=== PATIENT | female | born 1960 | race Caucasian/White ===

== ENCOUNTER 2021-08-22 16:41 | Inpatient (IN) ==
[2021-08-22] MEDS ORDERED: Isovue-370 500 ML BOTTLE IVP ONE (20:46)
[2021-08-22 21:09] LABS: Basophils # 0.1 K/mcL (0.0-0.2); Basophils % 0.7 %; Eosinophils # 0.5 K/mcL (0.0-0.6); Eosinophils % 4.7 %; Hematocrit 41.7 % (35.3-44.9); Immature Granulocytes % 0.5 % (0-4); Lymphocytes # 3.5 K/mcL (0.6-4.6); Lymphocytes % 36.3 %; Mean Corpuscular HGB Conc 31.2 g/dL (31.6-35.5); Mean Corpuscular Hemoglobin 26.6 pg (28.0-33.3); Mean Corpuscular Volume 85.5 fL (83.0-100.0); Mean Platelet Volume 9.2 fL (9.4-12.4); Monocytes # 0.7 K/mcL (0.0-1.3); Monocytes % 7.5 %; Neutrophils # 4.9 K/mcL (1.6-8.9); Platelet Count 467 K/mcL (140-400); Red Blood Count 4.88 M/mcL (3.82-4.97); Red Cell Distribution Width 14.5 % (11.5-14.5); Segmented Neutrophils % 50.3 %; White Blood Count 9.6 K/mcL (4.3-11.1)
[2021-08-22 21:28] LABS: Alanine Aminotransferase 7 Units/L (7-52); Albumin 3.5 g/dL (3.5-5.7); Albumin/Globulin Ratio 0.7 (1.1-2.2); Alkaline Phosphatase 111 Units/L (34-104); Aspartate Amino Transferase 7 Units/L (13-39); BUN/Creatinine Ratio 14 (6-26); Bilirubin,Indirect 0.3 mg/dL (0.0-1.0); Bilirubin,Total 0.3 mg/dL (0.3-1.0); Blood Urea Nitrogen 10 mg/dL (8-23); Calcium 9.2 mg/dL (8.6-10.3); Carbon Dioxide 27 mEq/L (23-29); Chloride 98 mEq/L (98-107); Globulin 4.7 g/dL (2.4-3.5); Glucose 284 mg/dL (70-105); Osmolality,Calculated 291 (280-300); Potassium 3.4 mEq/L (3.5-5.1); Sodium 136 mEq/L (136-145); Total Protein 8.2 g/dL (6.4-8.9); eGFR For African Americans > 60 (> 60); eGFR For Non-African Americans > 60 (> 60)
[2021-08-22] MEDS ORDERED: Morphine Sulfate 2 MG/ML SYRINGE IVP ONE (21:38)
[2021-08-22] MEDS ORDERED: Ketorolac 30 MG/ML VIAL IVP ONE (21:38)
[2021-08-23] MEDS ORDERED: Morphine Sulfate 2 MG/ML SYRINGE IVP ONE (00:21)
[2021-08-23] MEDS ORDERED: Vancomycin 2,000 MG/520 ML IV.SOLN IVPB ONE (00:21)
[2021-08-23] MEDS ORDERED: Cefepime HCl 1,000 MG in 0.9 % Sodium Chloride 10 ML IVP ONE (00:23)
[2021-08-23] MEDS ORDERED: Acetaminophen 325 MG TABLET PO PRN (00:57)
[2021-08-23] MEDS ORDERED: Naloxone 0.4 MG/ML INJ IVP PRN (00:57)
[2021-08-23] MEDS ORDERED: Melatonin 3 MG TABLET PO PRN (00:57)
[2021-08-23] MEDS ORDERED: *HR* Dextrose 50 % in Water (Syg) 50 ML SYRINGE IVP PRN (01:01)
[2021-08-23] MEDS ORDERED: Dextrose 4 GM Chewable Tablets PO PRN ×2 (01:01)
[2021-08-23] MEDS ORDERED: D5% in Water 1,000 ML IVC PRN (01:01)
[2021-08-23] MEDS ORDERED: Perflutren Lipid Microsphere 1.3 ML in 0.9 % Sodium Chloride 8.7 ML IVP PRN (03:31)
[2021-08-23 04:04] LABS: Hematocrit 37.2 % (35.3-44.9); Hemoglobin 11.5 g/dL (11.5-15.4); Mean Corpuscular HGB Conc 30.9 g/dL (31.6-35.5); Mean Corpuscular Hemoglobin 26.2 pg (28.0-33.3); Mean Corpuscular Volume 84.7 fL (83.0-100.0); Platelet Count 403 K/mcL (140-400); Red Blood Count 4.39 M/mcL (3.82-4.97); Red Cell Distribution Width 14.3 % (11.5-14.5); White Blood Count 11.3 K/mcL (4.3-11.1)
[2021-08-23 04:06] LABS: Chol/HDL Ratio 3.8 (0-4.9); Magnesium 1.9 mg/dL (1.6-2.6); Phosphorous 3.9 mg/dL (2.7-4.5)
[2021-08-23 04:07] LABS: Activated Partial Thrombo Time 35.6 Seconds (26.0-36.0)
[2021-08-23 04:22] LABS: Alanine Aminotransferase 6 Units/L (7-52); Albumin 3.1 g/dL (3.5-5.7); Albumin/Globulin Ratio 0.8 (1.1-2.2); Alkaline Phosphatase 94 Units/L (34-104); Aspartate Amino Transferase 8 Units/L (13-39); BUN/Creatinine Ratio 15 (6-26); Bilirubin,Total 0.3 mg/dL (0.3-1.0); Blood Urea Nitrogen 9 mg/dL (8-23); Calcium 8.6 mg/dL (8.6-10.3); Carbon Dioxide 28 mEq/L (23-29); Chloride 101 mEq/L (98-107); Globulin 3.9 g/dL (2.4-3.5); Glucose 192 mg/dL (70-105); Osmolality,Calculated 288 (280-300); Potassium 3.4 mEq/L (3.5-5.1); Sodium 137 mEq/L (136-145); eGFR For African Americans > 60 (> 60); eGFR For Non-African Americans > 60 (> 60)
[2021-08-23] MEDS ORDERED: Potassium Chloride Elixir 20 MEQ/15 ML UDC PO ONE ×2 (04:25→07:30)
[2021-08-23 04:38] LABS: INR 1.2; Prothrombin Time 13.7 Seconds (9.4-12.1)
[2021-08-23 06:04] LABS: Estimated Average Glucose 237 mg/dl; Hemoglobin A1C 9.9 %
[2021-08-23] MEDS ORDERED: Insulin LISPRO 300 UNITS/3 ML VIAL SUBQ SCH (07:30)
[2021-08-23] MEDS: Insulin LISPRO 300 UNITS/3 ML VIAL SUBQ SCH ×3 (08:25→16:49)
[2021-08-23] MEDS: *HR* OxyCODONE/APAP 5/325 TABLET PO PRN ×2 (10:50→21:46)
[2021-08-23] MEDS ORDERED: Cefepime HCl 1,000 MG in 0.9 % Sodium Chloride 10 ML IVP SCH (12:00)
[2021-08-23] MEDS ORDERED: Vancomycin 1,500 MG/265 ML IV.SOLN IVPB SCH (13:00)
[2021-08-23] MEDS: Gabapentin 400 MG CAPSULE PO SCH ×2 (14:38→21:42)
[2021-08-23] MEDS: Vancomycin 1,500 MG/265 ML IV.SOLN IVPB SCH (14:48)
[2021-08-23] MEDS: Furosemide 20 MG TABLET PO SCH (16:49)
[2021-08-23] MEDS: Cefepime HCl 2,000 MG in 0.9 % Sodium Chloride 10 ML IVP SCH ×2 (16:49→23:54)
[2021-08-23 19:53] LABS: CTX-M ESBL Gene Not Detected (Not Detect); IMP Carbapenem-Resist Gene Not Detected (Not Detect); NDM Carbapenem-Resist Gene Not Detected (Not Detect); OXA-48-like Carbap-Resist Gene Not Detected (Not Detect); VIM Carbapenem-Resist Gene Not Detected (Not Detect); blaKPC Carbapenem-Resist Gene Not Detected (Not Detect); mecA/C Methicillin-Resist Gene Not Detected (Not Detect)
[2021-08-23 19:54] LABS: A.calcoaceticus-baumannii cplx Not Detected (Not Detect); Bacteroides fragilis by PCR Not Detected (Not Detect); Candida albicans by PCR Not Detected (Not Detect); Candida auris by PCR Not Detected (Not Detect); Candida glabrata by PCR Not Detected (Not Detect); Candida krusei by PCR Not Detected (Not Detect); Candida parapsilosis by PCR Not Detected (Not Detect); Candida tropicalis by PCR Not Detected (Not Detect); Crypto. neoformans/gattii PCR Not Detected (Not Detect); Enterobacter cloacae Cmplx PCR Not Detected (Not Detect); Enterobacterales by PCR Not Detected (Not Detect); Enterococcus faecalis by PCR Not Detected (Not Detect); Enterococcus faecium by PCR Not Detected (Not Detect); Escherichia coli by PCR Not Detected (Not Detect); Klebs. pneumoniae group by PCR Not Detected (Not Detect); Klebsiella aerogenes by PCR Not Detected (Not Detect); Klebsiella oxytoca by PCR Not Detected (Not Detect); Proteus by PCR Not Detected (Not Detect); Pseudomonas aeruginosa by PCR Not Detected (Not Detect); Salmonella species by PCR Not Detected (Not Detect); Serratia marcescens by PCR Not Detected (Not Detect); Staph epidermidis by PCR Not Detected (Not Detect); Staph lugdunensis by PCR Not Detected (Not Detect); Staphylococcus aureus by PCR DETECTED (Not Detect); Stenotrophomonas maltophilia Not Detected (Not Detect); Streptococcus agalactiae(B)PCR Not Detected (Not Detect); Streptococcus by PCR Not Detected (Not Detect); Streptococcus pneumoniae PCR Not Detected (Not Detect); Streptococcus pyogenes (A) PCR Not Detected (Not Detect); mcr-1 Colistin-Resist Gene Not Detected (Not Detect); mecA/C & MREJ (MRSA) Gene Not Detected (Not Detect); vanA/B Vancomycin-Resist Genes Not Detected (Not Detect)
[2021-08-23] MEDS ORDERED: Insulin DETEMIR 100 UNIT/ML X5UNITS SUBQ SCH ×2 (21:00)
[2021-08-24] MEDS: *HR* OxyCODONE/APAP 5/325 TABLET PO PRN ×2 (04:22→15:26)
[2021-08-24 04:39] LABS: BUN/Creatinine Ratio 17 (6-26); Blood Urea Nitrogen 11 mg/dL (8-23); Calcium 8.6 mg/dL (8.6-10.3); Carbon Dioxide 26 mEq/L (23-29); Chloride 100 mEq/L (98-107); Glucose 267 mg/dL (70-105); Osmolality,Calculated 289 (280-300); Potassium 4.4 mEq/L (3.5-5.1); Sodium 135 mEq/L (136-145); eGFR For African Americans > 60 (> 60); eGFR For Non-African Americans > 60 (> 60)
[2021-08-24] MEDS: *HR* Enoxaparin 40 MG/0.4 ML SYRINGE SQ SCH (05:30)
[2021-08-24] MEDS: Insulin LISPRO 300 UNITS/3 ML VIAL SUBQ SCH ×3 (08:29→18:13)
[2021-08-24] MEDS: Cefepime HCl 2,000 MG in 0.9 % Sodium Chloride 10 ML IVP SCH (08:29)
[2021-08-24] MEDS: Furosemide 20 MG TABLET PO SCH ×2 (08:30→18:18)
[2021-08-24] MEDS: Gabapentin 400 MG CAPSULE PO SCH ×3 (08:30→20:27)
[2021-08-24] MEDS ORDERED: Perflutren Lipid Microsphere 1.3 ML in 0.9 % Sodium Chloride 8.7 ML IVP PRN (12:39)
[2021-08-24] MEDS: Insulin DETEMIR 100 UNIT/ML X5UNITS SUBQ SCH ×2 (14:49→20:27)
[2021-08-24] MEDS: Vancomycin 1,500 MG/265 ML IV.SOLN IVPB SCH (14:50)
[2021-08-24] MEDS: CeFAZolin 2,000 MG/120 ML BAG IVPB SCH (18:13)
[2021-08-25] MEDS: CeFAZolin 2,000 MG/120 ML BAG IVPB SCH ×4 (01:09→23:36)
[2021-08-25 01:14] LABS: Hematocrit 34.2 % (35.3-44.9); Hemoglobin 10.5 g/dL (11.5-15.4); Mean Corpuscular HGB Conc 30.7 g/dL (31.6-35.5); Mean Corpuscular Hemoglobin 26.1 pg (28.0-33.3); Mean Corpuscular Volume 84.9 fL (83.0-100.0); Mean Platelet Volume 9.3 fL (9.4-12.4); Platelet Count 364 K/mcL (140-400); Red Blood Count 4.03 M/mcL (3.82-4.97); White Blood Count 8.4 K/mcL (4.3-11.1)
[2021-08-25 01:31] LABS: BUN/Creatinine Ratio 21 (6-26); Blood Urea Nitrogen 14 mg/dL (8-23); Calcium 8.5 mg/dL (8.6-10.3); Carbon Dioxide 27 mEq/L (23-29); Chloride 101 mEq/L (98-107); Glucose 220 mg/dL (70-105); Magnesium 1.8 mg/dL (1.6-2.6); Osmolality,Calculated 285 (280-300); Phosphorous 3.3 mg/dL (2.7-4.5); Potassium 4.6 mEq/L (3.5-5.1); Sodium 134 mEq/L (136-145); eGFR For African Americans > 60 (> 60); eGFR For Non-African Americans > 60 (> 60)
[2021-08-25] MEDS: *HR* Enoxaparin 40 MG/0.4 ML SYRINGE SQ SCH (05:10)
[2021-08-25] MEDS: Furosemide 20 MG TABLET PO SCH ×2 (09:56→17:04)
[2021-08-25] MEDS: Gabapentin 400 MG CAPSULE PO SCH ×3 (10:02→21:32)
[2021-08-25] MEDS: Insulin DETEMIR 100 UNIT/ML X5UNITS SUBQ SCH ×2 (10:06→21:33)
[2021-08-25] MEDS: Insulin LISPRO 300 UNITS/3 ML VIAL SUBQ SCH ×3 (10:06→17:07)
[2021-08-25] MEDS: *HR* OxyCODONE/APAP 5/325 TABLET PO PRN ×2 (13:08→21:32)
[2021-08-26] MEDS: *HR* Enoxaparin 40 MG/0.4 ML SYRINGE SQ SCH (04:54)
[2021-08-26] MEDS: Insulin LISPRO 300 UNITS/3 ML VIAL SUBQ SCH ×3 (09:15→17:09)
[2021-08-26] MEDS: Gabapentin 400 MG CAPSULE PO SCH ×3 (09:16→20:37)
[2021-08-26] MEDS: Insulin DETEMIR 100 UNIT/ML X5UNITS SUBQ SCH ×2 (09:21→20:37)
[2021-08-26] MEDS: *HR* OxyCODONE/APAP 5/325 TABLET PO PRN ×3 (09:32→23:56)
[2021-08-26] MEDS: CeFAZolin 2,000 MG/120 ML BAG IVPB SCH ×3 (10:38→23:56)
[2021-08-27 03:17] LABS: Hematocrit 34.1 % (35.3-44.9); Hemoglobin 10.5 g/dL (11.5-15.4); Mean Corpuscular HGB Conc 30.8 g/dL (31.6-35.5); Mean Corpuscular Hemoglobin 26.3 pg (28.0-33.3); Mean Corpuscular Volume 85.3 fL (83.0-100.0); Mean Platelet Volume 9.4 fL (9.4-12.4); Platelet Count 334 K/mcL (140-400); Red Cell Distribution Width 14.3 % (11.5-14.5); White Blood Count 7.8 K/mcL (4.3-11.1)
[2021-08-27 03:31] LABS: BUN/Creatinine Ratio 28 (6-26); Blood Urea Nitrogen 16 mg/dL (8-23); Calcium 8.7 mg/dL (8.6-10.3); Carbon Dioxide 25 mEq/L (23-29); Chloride 102 mEq/L (98-107); Glucose 151 mg/dL (70-105); Magnesium 1.8 mg/dL (1.6-2.6); Osmolality,Calculated 282 (280-300); Potassium 4.4 mEq/L (3.5-5.1); Sodium 134 mEq/L (136-145); eGFR For African Americans > 60 (> 60); eGFR For Non-African Americans > 60 (> 60)
[2021-08-27] MEDS: *HR* Enoxaparin 40 MG/0.4 ML SYRINGE SQ SCH (05:04)
[2021-08-27] MEDS: Insulin LISPRO 300 UNITS/3 ML VIAL SUBQ SCH ×3 (08:06→16:45)
[2021-08-27] MEDS: Insulin DETEMIR 100 UNIT/ML X5UNITS SUBQ SCH ×2 (09:01→20:25)
[2021-08-27] MEDS: Gabapentin 400 MG CAPSULE PO SCH ×3 (09:01→20:24)
[2021-08-27] MEDS: CeFAZolin 2,000 MG/120 ML BAG IVPB SCH ×4 (09:06→23:09)
[2021-08-27] MEDS: *HR* OxyCODONE/APAP 5/325 TABLET PO PRN ×3 (09:07→20:24)
[2021-08-27] MEDS: Ondansetron ODT 4 MG TAB.RAPDIS SL PRN (11:43)
[2021-08-28] MEDS: *HR* Enoxaparin 40 MG/0.4 ML SYRINGE SQ SCH (04:56)
[2021-08-28] MEDS: *HR* OxyCODONE/APAP 5/325 TABLET PO PRN ×4 (04:56→23:48)
[2021-08-28] MEDS: Gabapentin 400 MG CAPSULE PO SCH ×3 (09:02→20:48)
[2021-08-28] MEDS: CeFAZolin 2,000 MG/120 ML BAG IVPB SCH ×3 (09:02→23:08)
[2021-08-28] MEDS: Insulin DETEMIR 100 UNIT/ML X5UNITS SUBQ SCH ×2 (09:03→20:49)
[2021-08-28] MEDS: Insulin LISPRO 300 UNITS/3 ML VIAL SUBQ SCH ×3 (09:03→16:32)
[2021-08-29] MEDS: *HR* Enoxaparin 40 MG/0.4 ML SYRINGE SQ SCH (05:04)
[2021-08-29] MEDS: Insulin LISPRO 300 UNITS/3 ML VIAL SUBQ SCH ×3 (08:28→17:38)
[2021-08-29] MEDS: Insulin DETEMIR 100 UNIT/ML X5UNITS SUBQ SCH ×2 (08:28→21:44)
[2021-08-29] MEDS: Gabapentin 400 MG CAPSULE PO SCH ×3 (08:29→21:44)
[2021-08-29] MEDS: CeFAZolin 2,000 MG/120 ML BAG IVPB SCH ×3 (08:29→23:43)
[2021-08-29] MEDS: *HR* OxyCODONE/APAP 5/325 TABLET PO PRN ×2 (08:52→19:34)
[2021-08-29 09:24] LABS: Hematocrit 30.9 % (35.3-44.9); Hemoglobin 9.6 g/dL (11.5-15.4); Mean Corpuscular HGB Conc 31.1 g/dL (31.6-35.5); Mean Corpuscular Hemoglobin 26.8 pg (28.0-33.3); Mean Corpuscular Volume 86.3 fL (83.0-100.0); Mean Platelet Volume 9.5 fL (9.4-12.4); Platelet Count 306 K/mcL (140-400); Red Blood Count 3.58 M/mcL (3.82-4.97); Red Cell Distribution Width 14.6 % (11.5-14.5); White Blood Count 7.8 K/mcL (4.3-11.1)
[2021-08-29 10:09] LABS: BUN/Creatinine Ratio 30 (6-26); Blood Urea Nitrogen 18 mg/dL (8-23); Calcium 8.4 mg/dL (8.6-10.3); Carbon Dioxide 29 mEq/L (23-29); Chloride 105 mEq/L (98-107); Glucose 159 mg/dL (70-105); Magnesium 1.7 mg/dL (1.6-2.6); Osmolality,Calculated 291 (280-300); Potassium 4.1 mEq/L (3.5-5.1); Sodium 138 mEq/L (136-145); eGFR For African Americans > 60 (> 60); eGFR For Non-African Americans > 60 (> 60)
[2021-08-29] MEDS ORDERED: Lidocaine Viscous Oral Soln 15 ML SOLUTION MM PRN (11:05)
[2021-08-29] MEDS ORDERED: 0.9 % Sodium Chloride 500 ML IVC ONE (11:05)
[2021-08-29] MEDS: *HR* FentaNYL (PF) 100 MCG/2 ML VIAL IVP PRN ×2 (11:25→11:30)
[2021-08-29] MEDS: *HR* Midazolam HCl 5 MG/5 ML VIAL IVP PRN ×2 (11:25→11:30)
[2021-08-29 15:38] LABS: Hematocrit 33.2 % (35.3-44.9); Hemoglobin 10.2 g/dL (11.5-15.4); Mean Corpuscular HGB Conc 30.7 g/dL (31.6-35.5); Mean Corpuscular Hemoglobin 26.4 pg (28.0-33.3); Mean Platelet Volume 9.4 fL (9.4-12.4); Platelet Count 327 K/mcL (140-400); Red Blood Count 3.86 M/mcL (3.82-4.97); Red Cell Distribution Width 14.6 % (11.5-14.5); White Blood Count 8.6 K/mcL (4.3-11.1)
[2021-08-29 15:56] LABS: % Iron Saturation 7 % (15-50); Iron 17 mcg/dL (50-170); Transferrin 177 mg/dL (203-362)
[2021-08-29] MEDS: Ondansetron ODT 4 MG TAB.RAPDIS SL PRN (19:34)
[2021-08-30] MEDS: *HR* OxyCODONE/APAP 5/325 TABLET PO PRN ×3 (02:36→20:47)
[2021-08-30] MEDS: *HR* Enoxaparin 40 MG/0.4 ML SYRINGE SQ SCH (04:54)
[2021-08-30 07:42] LABS: Alanine Aminotransferase 6 Units/L (7-52); Albumin 2.9 g/dL (3.5-5.7); Alkaline Phosphatase 66 Units/L (34-104); Aspartate Amino Transferase 10 Units/L (13-39); BUN/Creatinine Ratio 25 (6-26); Bilirubin,Total 0.2 mg/dL (0.3-1.0); Blood Urea Nitrogen 14 mg/dL (8-23); Calcium 8.4 mg/dL (8.6-10.3); Carbon Dioxide 27 mEq/L (23-29); Chloride 106 mEq/L (98-107); Globulin 2.8 g/dL (2.4-3.5); Glucose 198 mg/dL (70-105); Osmolality,Calculated 294 (280-300); Potassium 4.5 mEq/L (3.5-5.1); Sodium 139 mEq/L (136-145); Total Protein 5.7 g/dL (6.4-8.9); eGFR For African Americans > 60 (> 60); eGFR For Non-African Americans > 60 (> 60)
[2021-08-30 07:44] LABS: Ferritin 166 ng/mL (10-120)
[2021-08-30] MEDS: Insulin LISPRO 300 UNITS/3 ML VIAL SUBQ SCH ×3 (08:25→16:32)
[2021-08-30] MEDS: CeFAZolin 2,000 MG/120 ML BAG IVPB SCH ×2 (08:25→16:32)
[2021-08-30] MEDS: Insulin DETEMIR 100 UNIT/ML X5UNITS SUBQ SCH ×2 (08:25→20:34)
[2021-08-30] MEDS: Gabapentin 400 MG CAPSULE PO SCH ×3 (08:25→20:33)
[2021-08-30] MEDS ORDERED: Chloraseptic Spray 177 ML BOTTLE MM PRN (10:52)
[2021-08-30] MEDS ORDERED: *HR* Propofol 200 MG/20 ML VIAL IVP ONE (15:19)
[2021-08-30] MEDS ORDERED: Lidocaine -MPF 2% 2 ML VIAL ONE (15:19)
[2021-08-31] MEDS: CeFAZolin 2,000 MG/120 ML BAG IVPB SCH ×3 (00:04→15:35)
[2021-08-31] MEDS: *HR* OxyCODONE/APAP 5/325 TABLET PO PRN ×2 (04:46→12:10)
[2021-08-31] MEDS: *HR* Enoxaparin 40 MG/0.4 ML SYRINGE SQ SCH (05:36)
[2021-08-31] MEDS: Gabapentin 400 MG CAPSULE PO SCH ×2 (08:55→15:34)
[2021-08-31] MEDS: Insulin DETEMIR 100 UNIT/ML X5UNITS SUBQ SCH (08:56)
[2021-08-31] MEDS: Insulin LISPRO 300 UNITS/3 ML VIAL SUBQ SCH ×3 (08:57→16:33)
[2021-08-31 12:04] VITALS: BP 133/73; PULSE 74; TEMP 98.1; O2SAT 96
== END 2021-08-31 16:38 | disposition home health service (06) | DRG 383 ==
LOC: EMEROOARM 16:41 → 3ANU 16:41 → SUATTDRO 08-23 00:44 → 3ANU 08-23 02:00 → SUATTDRO 08-23 13:37
PROVIDERS: ADMIT Internal Medicine; ATTEND Family Medicine
PROC: ENDOEBX (2021-08-30 15:20)

== ENCOUNTER 2022-02-12 10:55 | Observation (INO) ==
[2022-02-12] MEDS ORDERED: Ringers Solution, Lactated 1,000 ML IVC SCH ×2 (12:00→21:34)
[2022-02-12] MEDS ORDERED: Vancomycin 2,000 MG/520 ML IV.SOLN IVPB ONE (12:00)
[2022-02-12] MEDS ORDERED: Sugammadex Sodium 200 MG/2 ML VIAL IV ONE (13:59)
[2022-02-12] MEDS ORDERED: *HR* FentaNYL (PF) 100 MCG/2 ML VIAL ONE ×2 (13:59→16:40)
[2022-02-12] MEDS ORDERED: *HR* Propofol 200 MG/20 ML VIAL IVP ONE ×2 (13:59→16:39)
[2022-02-12] MEDS ORDERED: *HR* Succinylcholine 200 MG/10 ML VIAL IVP ONE (13:59)
[2022-02-12] MEDS ORDERED: Lidocaine -MPF 2% 2 ML VIAL ONE (13:59)
[2022-02-12] MEDS ORDERED: Ondansetron 4 MG/2 ML VIAL ONE (13:59)
[2022-02-12] MEDS ORDERED: *HR* Phenylephrine 10 MG/ML VIAL ONE (15:55)
[2022-02-12] MEDS ORDERED: *HR* Midazolam HCl 2 MG/2 ML VIAL ONE (17:07)
[2022-02-12] MEDS ORDERED: Albumin Human 5% 25.0 GM/500 ML IV.SOLN ONE (17:35)
[2022-02-12] MEDS ORDERED: Acetaminophen IV 1,000 MG/100 ML BAG IVPB ONE (19:25)
[2022-02-12] MEDS ORDERED: Ketorolac 30 MG/ML VIAL ONE (19:54)
[2022-02-12] MEDS ORDERED: *HR* HYDROmorphone (PF) 1 MG/ML SYRINGE ONE (20:16)
[2022-02-12] MEDS: *HR* HYDROmorphone PF 0.5 MG/0.5 ML SYRINGE IVP PRN ×3 (20:25→20:42)
[2022-02-12] MEDS ORDERED: Ondansetron 4 MG/2 ML VIAL IVP PRN ×2 (20:44→21:34)
[2022-02-12] MEDS ORDERED: Naloxone 0.4 MG/ML INJ IVP PRN ×2 (20:44→21:34)
[2022-02-12] MEDS ORDERED: Ketorolac 30 MG/ML VIAL IVP PRN (20:44)
[2022-02-12] MEDS ORDERED: NON-FORMULARY MEDICATION 1 EACH EACH (Insulin Glargine,Hum.Rec.Anlog [Lantus Solostar] 100 SQ SCH (21:34)
[2022-02-12] MEDS: Insulin DETEMIR 100 UNIT/ML X5UNITS SUBQ SCH (22:40)
[2022-02-12] MEDS: Gabapentin 400 MG CAPSULE PO SCH (22:41)
[2022-02-12] MEDS: Furosemide 20 MG TABLET PO SCH ×2 (22:42→23:36)
[2022-02-13] MEDS: Ketorolac 30 MG/ML VIAL IVP PRN (00:20)
[2022-02-13 01:35] LABS: Basophils % 0.4 %; Hematocrit 37.5 % (35.3-44.9); Hemoglobin 11.7 g/dL (11.5-15.4); Immature Granulocytes % 0.6 % (0-4); Lymphocytes # 0.8 K/mcL (0.6-4.6); Lymphocytes % 10.6 %; Mean Corpuscular HGB Conc 31.2 g/dL (31.6-35.5); Mean Corpuscular Hemoglobin 26.6 pg (28.0-33.3); Mean Corpuscular Volume 85.2 fL (83.0-100.0); Mean Platelet Volume 9.5 fL (9.4-12.4); Monocytes # 0.1 K/mcL (0.0-1.3); Monocytes % 0.8 %; Neutrophils # 6.9 K/mcL (1.6-8.9); Platelet Count 334 K/mcL (140-400); Red Cell Distribution Width 16.5 % (11.5-14.5); Segmented Neutrophils % 87.6 %; White Blood Count 7.9 K/mcL (4.3-11.1)
[2022-02-13 01:59] LABS: Potassium 4.7 mEq/L (3.5-5.1)
[2022-02-13] MEDS: *HR* FentaNYL (PF) 100 MCG/2 ML VIAL IVP PRN ×3 (02:21→11:12)
[2022-02-13] MEDS ORDERED: Vancomycin 2,000 MG/520 ML IV.SOLN IVPB ONE (06:00)
[2022-02-13] MEDS: Pantoprazole 40 MG VIAL IVP SCH (06:22)
[2022-02-13] MEDS ORDERED: D5% in Water 1,000 ML IVC PRN (06:46)
[2022-02-13] MEDS ORDERED: *HR* Dextrose 50 % in Water (Syg) 50 ML SYRINGE IVP PRN (06:46)
[2022-02-13] MEDS ORDERED: Dextrose Gel 15 GM/37.5 ML TUBE PO PRN ×2 (06:46)
[2022-02-13] MEDS: Furosemide 20 MG TABLET PO SCH ×2 (08:43→18:51)
[2022-02-13] MEDS: Gabapentin 400 MG CAPSULE PO SCH ×3 (08:43→20:11)
[2022-02-13] MEDS: Loratadine 10 MG TABLET PO SCH (08:43)
[2022-02-13] MEDS: hydroCHLOROthiazide 25 MG TABLET PO SCH (08:45)
[2022-02-13] MEDS: Insulin DETEMIR 100 UNIT/ML X5UNITS SUBQ SCH ×2 (08:57→20:11)
[2022-02-13] MEDS: Insulin LISPRO 300 UNITS/3 ML VIAL SUBQ SCH ×4 (08:58→20:14)
[2022-02-13] MEDS ORDERED: Pantoprazole 40 MG VIAL IVP SCH (09:00)
[2022-02-13] MEDS ORDERED: Chloraseptic Spray 177 ML BOTTLE MM PRN (19:22)
[2022-02-14] MEDS: Ketorolac 30 MG/ML VIAL IVP PRN (02:39)
[2022-02-14] MEDS: Pantoprazole 40 MG VIAL IVP SCH (06:11)
[2022-02-14 07:08] LABS: White Blood Count 8.9 K/mcL (4.3-11.1)
[2022-02-14 07:09] LABS: Basophils % 0.3 %; Eosinophils # 0.1 K/mcL (0.0-0.6); Eosinophils % 1.2 %; Hematocrit 31.5 % (35.3-44.9); Hemoglobin 9.6 g/dL (11.5-15.4); Lymphocytes # 3.1 K/mcL (0.6-4.6); Lymphocytes % 34.5 %; Mean Corpuscular HGB Conc 30.5 g/dL (31.6-35.5); Mean Corpuscular Volume 88.7 fL (83.0-100.0); Mean Platelet Volume 9.6 fL (9.4-12.4); Monocytes # 0.7 K/mcL (0.0-1.3); Monocytes % 7.9 %; Neutrophils # 4.9 K/mcL (1.6-8.9); Platelet Count 279 K/mcL (140-400); Red Blood Count 3.55 M/mcL (3.82-4.97); Red Cell Distribution Width 16.7 % (11.5-14.5); Segmented Neutrophils % 55.1 %
[2022-02-14 07:27] LABS: Magnesium 1.8 mg/dL (1.6-2.6); Potassium 4.4 mEq/L (3.5-5.1)
[2022-02-14] MEDS: Gabapentin 400 MG CAPSULE PO SCH ×3 (08:11→20:24)
[2022-02-14] MEDS: Furosemide 20 MG TABLET PO SCH ×2 (08:11→18:29)
[2022-02-14] MEDS: Loratadine 10 MG TABLET PO SCH (08:11)
[2022-02-14] MEDS: hydroCHLOROthiazide 25 MG TABLET PO SCH (08:11)
[2022-02-14] MEDS: Insulin LISPRO 300 UNITS/3 ML VIAL SUBQ SCH ×5 (08:17→20:41)
[2022-02-14] MEDS: Insulin DETEMIR 100 UNIT/ML X5UNITS SUBQ SCH ×2 (08:18→20:30)
[2022-02-14] MEDS: *HR* OxyCODONE Immed Rel 5 MG TABLET PO PRN (20:24)
[2022-02-15] MEDS: Pantoprazole 40 MG VIAL IVP SCH (06:50)
[2022-02-15] MEDS: Insulin LISPRO 300 UNITS/3 ML VIAL SUBQ SCH ×4 (08:42→20:54)
[2022-02-15] MEDS: hydroCHLOROthiazide 25 MG TABLET PO SCH (08:43)
[2022-02-15] MEDS: Furosemide 20 MG TABLET PO SCH ×2 (08:43→18:11)
[2022-02-15] MEDS: Insulin DETEMIR 100 UNIT/ML X5UNITS SUBQ SCH ×2 (08:43→20:51)
[2022-02-15] MEDS: Loratadine 10 MG TABLET PO SCH (08:43)
[2022-02-15] MEDS: Gabapentin 400 MG CAPSULE PO SCH ×3 (08:43→20:47)
[2022-02-15] MEDS: Ketorolac 30 MG/ML VIAL IVP PRN ×2 (14:03→20:46)
[2022-02-16] MEDS: *HR* OxyCODONE Immed Rel 5 MG TABLET PO PRN (05:04)
[2022-02-16] MEDS: Gabapentin 400 MG CAPSULE PO SCH ×3 (08:53→20:50)
[2022-02-16] MEDS: Furosemide 20 MG TABLET PO SCH ×2 (08:53→16:42)
[2022-02-16] MEDS: hydroCHLOROthiazide 25 MG TABLET PO SCH (08:53)
[2022-02-16] MEDS: Loratadine 10 MG TABLET PO SCH (08:53)
[2022-02-16] MEDS: Insulin DETEMIR 100 UNIT/ML X5UNITS SUBQ SCH ×2 (08:57→20:50)
[2022-02-16] MEDS: Insulin LISPRO 300 UNITS/3 ML VIAL SUBQ SCH ×4 (08:57→20:51)
[2022-02-16] MEDS: Ketorolac 30 MG/ML VIAL IVP PRN (15:13)
[2022-02-16] MEDS: Acetaminophen 325 MG TABLET PO PRN (17:27)
[2022-02-16] MEDS: amLODIPine 5 MG TABLET PO SCH (18:13)
[2022-02-17] MEDS: Acetaminophen 325 MG TABLET PO PRN (04:12)
[2022-02-17] MEDS ORDERED: DULAGLUTIDE 4.5 MG/0.5 ML SUBQ SCH (09:00)
[2022-02-17] MEDS: Insulin LISPRO 300 UNITS/3 ML VIAL SUBQ SCH ×4 (09:20→20:52)
[2022-02-17] MEDS: Insulin DETEMIR 100 UNIT/ML X5UNITS SUBQ SCH ×2 (09:21→20:49)
[2022-02-17] MEDS: Loratadine 10 MG TABLET PO SCH (10:23)
[2022-02-17] MEDS: Gabapentin 400 MG CAPSULE PO SCH ×3 (10:23→20:50)
[2022-02-17] MEDS: hydroCHLOROthiazide 25 MG TABLET PO SCH (10:23)
[2022-02-17] MEDS: amLODIPine 5 MG TABLET PO SCH (10:23)
[2022-02-17] MEDS: Furosemide 20 MG TABLET PO SCH ×2 (10:23→16:50)
[2022-02-17] MEDS: Ketorolac 30 MG/ML VIAL IVP PRN (14:52)
[2022-02-17] MEDS: *HR* OxyCODONE Immed Rel 5 MG TABLET PO PRN (21:14)
[2022-02-18] MEDS: *HR* OxyCODONE Immed Rel 5 MG TABLET PO PRN (06:22)
[2022-02-18 08:54] LABS: Basophils % 0.3 %; Eosinophils # 0.4 K/mcL (0.0-0.6); Eosinophils % 2.8 %; Hematocrit 30.5 % (35.3-44.9); Hemoglobin 9.6 g/dL (11.5-15.4); Immature Granulocytes % 0.7 % (0-4); Lymphocytes # 2.8 K/mcL (0.6-4.6); Mean Corpuscular HGB Conc 31.5 g/dL (31.6-35.5); Mean Corpuscular Hemoglobin 27.5 pg (28.0-33.3); Mean Corpuscular Volume 87.4 fL (83.0-100.0); Mean Platelet Volume 9.5 fL (9.4-12.4); Monocytes # 1.4 K/mcL (0.0-1.3); Monocytes % 9.7 %; Platelet Count 340 K/mcL (140-400); Red Blood Count 3.49 M/mcL (3.82-4.97); Red Cell Distribution Width 16.7 % (11.5-14.5); Segmented Neutrophils % 67.5 %
[2022-02-18 08:56] LABS: Neutrophils # 9.9 K/mcL (1.6-8.9); White Blood Count 14.6 K/mcL (4.3-11.1)
[2022-02-18] MEDS: hydroCHLOROthiazide 25 MG TABLET PO SCH (09:32)
[2022-02-18] MEDS: amLODIPine 5 MG TABLET PO SCH (09:32)
[2022-02-18] MEDS: Loratadine 10 MG TABLET PO SCH (09:32)
[2022-02-18] MEDS: Gabapentin 400 MG CAPSULE PO SCH ×3 (09:32→21:02)
[2022-02-18] MEDS: levoFLOXacin 500 MG TABLET PO SCH (09:32)
[2022-02-18] MEDS: Insulin DETEMIR 100 UNIT/ML X5UNITS SUBQ SCH ×2 (09:32→21:02)
[2022-02-18] MEDS: Furosemide 20 MG TABLET PO SCH ×2 (09:32→16:07)
[2022-02-18] MEDS: Insulin LISPRO 300 UNITS/3 ML VIAL SUBQ SCH ×4 (09:33→21:04)
[2022-02-18] MEDS: Menthol 1 EACH LOZENGE PO PRN (16:07)
[2022-02-19] MEDS: Insulin LISPRO 300 UNITS/3 ML VIAL SUBQ SCH ×4 (07:46→21:00)
[2022-02-19 07:55] LABS: Basophils # 0.1 K/mcL (0.0-0.2); Basophils % 0.4 %; Eosinophils # 0.4 K/mcL (0.0-0.6); Eosinophils % 3.5 %; Hematocrit 30.2 % (35.3-44.9); Hemoglobin 9.4 g/dL (11.5-15.4); Immature Granulocytes % 0.6 % (0-4); Lymphocytes # 2.5 K/mcL (0.6-4.6); Mean Corpuscular HGB Conc 31.1 g/dL (31.6-35.5); Mean Corpuscular Hemoglobin 26.7 pg (28.0-33.3); Mean Corpuscular Volume 85.8 fL (83.0-100.0); Mean Platelet Volume 9.2 fL (9.4-12.4); Monocytes # 1.4 K/mcL (0.0-1.3); Monocytes % 12.8 %; Neutrophils # 6.8 K/mcL (1.6-8.9); Platelet Count 349 K/mcL (140-400); Red Blood Count 3.52 M/mcL (3.82-4.97); Red Cell Distribution Width 16.4 % (11.5-14.5); Segmented Neutrophils % 60.7 %; White Blood Count 11.3 K/mcL (4.3-11.1)
[2022-02-19] MEDS: Gabapentin 400 MG CAPSULE PO SCH ×3 (08:04→20:59)
[2022-02-19] MEDS: levoFLOXacin 500 MG TABLET PO SCH (08:04)
[2022-02-19] MEDS: Furosemide 20 MG TABLET PO SCH ×2 (08:04→18:01)
[2022-02-19] MEDS: Loratadine 10 MG TABLET PO SCH (08:04)
[2022-02-19] MEDS: hydroCHLOROthiazide 25 MG TABLET PO SCH (08:06)
[2022-02-19] MEDS: amLODIPine 5 MG TABLET PO SCH (08:06)
[2022-02-19] MEDS: Insulin DETEMIR 100 UNIT/ML X5UNITS SUBQ SCH ×2 (08:08→21:00)
[2022-02-19 08:13] LABS: BUN/Creatinine Ratio 27 (6-26); Blood Urea Nitrogen 17 mg/dL (8-23); Calcium 8.7 mg/dL (8.6-10.3); Carbon Dioxide 30 mEq/L (23-29); Chloride 98 mEq/L (98-107); Glucose 147 mg/dL (70-105); Magnesium 1.9 mg/dL (1.6-2.6); Osmolality,Calculated 282 (280-300); Phosphorous 4.1 mg/dL (2.7-4.5); Potassium 4.1 mEq/L (3.5-5.1); Sodium 134 mEq/L (136-145)
[2022-02-19] MEDS ORDERED: *HR* HYDROmorphone (PF) 1 MG/ML SYRINGE IVP ONE (11:48)
[2022-02-19] MEDS ORDERED: Acetylcysteine 10% 2 ML INHSOL IH ONE (13:31)
[2022-02-19] MEDS ORDERED: GuaiFENesin/Dextromethorphan TABLET PO PRN (13:31)
[2022-02-19] MEDS ORDERED: Albuterol 2.5 MG/3 ML NEBULIZER IH ONE (13:32)
[2022-02-19] MEDS: Acetaminophen 325 MG TABLET PO PRN ×2 (16:00→19:49)
[2022-02-20] MEDS ORDERED: Iopamidol - 370 500 ML MLS IVP ONE (06:47)
[2022-02-20] MEDS: Ipratropium/Albuterol Neb 3 ML IH SCH ×5 (07:40→23:19)
[2022-02-20] MEDS: Acetylcysteine 10% 2 ML INHSOL IH SCH ×5 (07:40→23:20)
[2022-02-20] MEDS: amLODIPine 5 MG TABLET PO SCH (08:22)
[2022-02-20] MEDS: levoFLOXacin 500 MG TABLET PO SCH (08:22)
[2022-02-20] MEDS: Gabapentin 400 MG CAPSULE PO SCH ×3 (08:22→20:51)
[2022-02-20] MEDS: Loratadine 10 MG TABLET PO SCH (08:22)
[2022-02-20] MEDS: Furosemide 20 MG TABLET PO SCH ×2 (08:22→17:13)
[2022-02-20] MEDS: hydroCHLOROthiazide 25 MG TABLET PO SCH (08:22)
[2022-02-20] MEDS: Insulin LISPRO 300 UNITS/3 ML VIAL SUBQ SCH ×3 (08:27→17:13)
[2022-02-20] MEDS: Insulin DETEMIR 100 UNIT/ML X5UNITS SUBQ SCH ×2 (08:27→20:51)
[2022-02-20 08:48] LABS: Basophils % 0.3 %; Eosinophils # 0.4 K/mcL (0.0-0.6); Eosinophils % 3.5 %; Hematocrit 30.7 % (35.3-44.9); Hemoglobin 9.5 g/dL (11.5-15.4); Immature Granulocytes % 0.6 % (0-4); Mean Corpuscular HGB Conc 30.9 g/dL (31.6-35.5); Mean Corpuscular Hemoglobin 26.2 pg (28.0-33.3); Mean Corpuscular Volume 84.8 fL (83.0-100.0); Mean Platelet Volume 9.4 fL (9.4-12.4); Monocytes # 1.3 K/mcL (0.0-1.3); Monocytes % 11.2 %; Neutrophils # 7.8 K/mcL (1.6-8.9); Platelet Count 451 K/mcL (140-400); Red Blood Count 3.62 M/mcL (3.82-4.97); Red Cell Distribution Width 16.1 % (11.5-14.5); Segmented Neutrophils % 67.4 %; White Blood Count 11.5 K/mcL (4.3-11.1)
[2022-02-20 09:05] LABS: BUN/Creatinine Ratio 25 (6-26); Blood Urea Nitrogen 17 mg/dL (8-23); Calcium 8.8 mg/dL (8.6-10.3); Carbon Dioxide 30 mEq/L (23-29); Chloride 95 mEq/L (98-107); Glucose 224 mg/dL (70-105); Magnesium 1.8 mg/dL (1.6-2.6); Osmolality,Calculated 285 (280-300); Phosphorous 3.4 mg/dL (2.7-4.5); Sodium 133 mEq/L (136-145)
[2022-02-20] MEDS ORDERED: Linezolid 600 MG TABLET PO SCH (09:30)
[2022-02-20 10:01] LABS: Bilirubin,Urine Negative (Negative); Blood,Urine Negative (Negative); Clarity,Urine Clear (Clear); Color,Urine Light-Yellow (Yellow); Glucose,Urine (UA) Normal (Normal); Ketones,Urine Negative (Negative); Leukocyte Esterase,Urine Negative (Negative); Nitrite,Urine Negative (Negative); PH,Urine 6.5 pH Units (5.0-8.0); Protein,Urine Negative (Neg-Trace); Specific Gravity,Urine 1.019 (1.010-1.025); Urobilinogen,Urine Normal (Normal)
[2022-02-20] MEDS: *HR* OxyCODONE Immed Rel 5 MG TABLET PO PRN (16:03)
[2022-02-20] MEDS ORDERED: Insulin LISPRO 300 UNITS/3 ML VIAL SUBQ SCH (21:00)
[2022-02-20] MEDS: Menthol 1 EACH LOZENGE PO PRN (21:31)
[2022-02-21] MEDS: Ipratropium/Albuterol Neb 3 ML IH SCH ×2 (04:12→07:23)
[2022-02-21] MEDS: Acetylcysteine 10% 2 ML INHSOL IH SCH ×3 (04:13→10:27)
[2022-02-21] MEDS ORDERED: Cefepime HCl 2,000 MG in 0.9 % Sodium Chloride Mini Bag 100 ML IVPB ONE (07:12)
[2022-02-21 07:40] VITALS: BP 108/77; PULSE 97; TEMP 99.1; O2SAT 92
[2022-02-21] MEDS: levoFLOXacin 500 MG TABLET PO SCH (07:52)
[2022-02-21] MEDS: Insulin LISPRO 300 UNITS/3 ML VIAL SUBQ SCH (07:52)
[2022-02-21] MEDS: amLODIPine 5 MG TABLET PO SCH (07:53)
[2022-02-21] MEDS: Gabapentin 400 MG CAPSULE PO SCH (07:53)
[2022-02-21] MEDS: Loratadine 10 MG TABLET PO SCH (07:53)
[2022-02-21] MEDS: Insulin DETEMIR 100 UNIT/ML X5UNITS SUBQ SCH (07:53)
[2022-02-21] MEDS: Furosemide 20 MG TABLET PO SCH (07:53)
[2022-02-21] MEDS: hydroCHLOROthiazide 25 MG TABLET PO SCH (07:53)
[2022-02-21] MEDS ORDERED: polyethylene glycoL 3350 17 GM POWD.PACK PO SCH (09:00)
[2022-02-21 09:05] LABS: Adenovirus Not Detected (Not Detect); Bordetella Pertussis Not Detected (Not Detect); Chlamydophila pneumoniae Not Detected (Not Detect); Coronavirus 229E Not Detected (Not Detect); Coronavirus HKU1 Not Detected (Not Detect); Coronavirus NL63 Not Detected (Not Detect); Coronavirus OC43 Not Detected (Not Detect); Human Metapneumovirus Not Detected (Not Detect); Human Rhinovirus/Enterovirus Not Detected (Not Detect); Influenza A Subtype 2009 H1 Not Detected (Not Detect); Influenza B Not Detected (Not Detect); Mycoplasma pneumoniae Not Detected (Not Detect); Parainfluenza Virus 1 Not Detected (Not Detect); Parainfluenza Virus 2 Not Detected (Not Detect); Parainfluenza Virus 3 Not Detected (Not Detect); Parainfluenza Virus 4 Not Detected (Not Detect); Respiratory Syncytial Virus Not Detected (Not Detect); SARS-CoV-2 Not Detected (Not Detect)
== END 2022-02-21 12:20 ==
LOC: 3ANU 10:55 → SAMDAY 10:55
PROVIDERS: ADMIT Surgery; ATTEND Surgery

== ENCOUNTER 2022-02-23 20:42 | Inpatient (IN) ==
[2022-02-24] MEDS ORDERED: *HR* HYDROcodone/Acet 5/325 mg TABLET PO PRN (00:58)
[2022-02-24] MEDS ORDERED: Acetaminophen 325 MG TABLET PO PRN (00:58)
[2022-02-24] MEDS ORDERED: Melatonin 3 MG TABLET PO PRN (00:58)
[2022-02-24] MEDS ORDERED: Naloxone 0.4 MG/ML INJ IVP PRN (00:58)
[2022-02-24] MEDS ORDERED: Ondansetron 4 MG/2 ML VIAL IVP PRN (00:58)
[2022-02-24] MEDS ORDERED: *HR* OxyCODONE Immed Rel 5 MG TABLET PO PRN (01:48)
[2022-02-24] MEDS ORDERED: D5% in Water 1,000 ML IVC PRN (01:49)
[2022-02-24] MEDS ORDERED: Dextrose Gel 15 GM/37.5 ML TUBE PO PRN ×2 (01:49)
[2022-02-24] MEDS ORDERED: *HR* Dextrose 50 % in Water (Syg) 50 ML SYRINGE IVP PRN (01:49)
[2022-02-24 04:56] LABS: Basophils # 0.1 K/mcL (0.0-0.2); Basophils % 0.6 %; Eosinophils # 0.4 K/mcL (0.0-0.6); Eosinophils % 3.5 %; Hemoglobin 9.1 g/dL (11.5-15.4); Lymphocytes # 2.8 K/mcL (0.6-4.6); Mean Corpuscular HGB Conc 30.3 g/dL (31.6-35.5); Mean Corpuscular Hemoglobin 26.5 pg (28.0-33.3); Mean Corpuscular Volume 87.2 fL (83.0-100.0); Monocytes # 0.8 K/mcL (0.0-1.3); Monocytes % 7.6 %; Platelet Count 577 K/mcL (140-400); Red Blood Count 3.44 M/mcL (3.82-4.97); Red Cell Distribution Width 15.9 % (11.5-14.5); Segmented Neutrophils % 59.3 %; White Blood Count 10.1 K/mcL (4.3-11.1)
[2022-02-24 05:03] LABS: INR 1.2; Prothrombin Time 13.3 Seconds (9.4-12.1)
[2022-02-24 05:06] LABS: Activated Partial Thrombo Time 31.8 Seconds (26.0-36.0)
[2022-02-24 05:07] LABS: Alanine Aminotransferase 14 Units/L (7-52); Albumin 2.8 g/dL (3.5-5.7); Albumin/Globulin Ratio 0.9 (1.1-2.2); Alkaline Phosphatase 129 Units/L (34-104); Aspartate Amino Transferase 11 Units/L (13-39); BUN/Creatinine Ratio 27 (6-26); Bilirubin,Total 0.2 mg/dL (0.3-1.0); Blood Urea Nitrogen 14 mg/dL (8-23); Calcium 8.2 mg/dL (8.6-10.3); Carbon Dioxide 31 mEq/L (23-29); Chloride 102 mEq/L (98-107); Globulin 3.2 g/dL (2.4-3.5); Glucose 157 mg/dL (70-105); Magnesium 1.9 mg/dL (1.6-2.6); Osmolality,Calculated 288 (280-300); Phosphorous 2.6 mg/dL (2.7-4.5); Potassium 4.3 mEq/L (3.5-5.1); Sodium 137 mEq/L (136-145)
[2022-02-24] MEDS ORDERED: Saliva Stimulant 44.3ml BOTTLE PO PRN (05:28)
[2022-02-24] MEDS: Vancomycin 1,500 MG/265 ML IV.SOLN IVPB SCH ×2 (06:07→18:19)
[2022-02-24] MEDS: Cefepime HCl 2,000 MG in 0.9 % Sodium Chloride Mini Bag 100 ML IVPB SCH ×2 (06:08→17:37)
[2022-02-24] MEDS ORDERED: Chlorhexidine Rinse 15 ML MOUTHWASH MM SCH (09:00)
[2022-02-24] MEDS: Insulin LISPRO 300 UNITS/3 ML VIAL SUBQ SCH ×6 (10:16→17:42)
[2022-02-24] MEDS: Ipratropium/Albuterol Neb 3 ML IH SCH ×3 (10:17→22:07)
[2022-02-24] MEDS: Gabapentin 400 MG CAPSULE PO SCH ×3 (10:27→21:09)
[2022-02-24] MEDS: Lactobacillus 1 EACH CAP.SPRINK PO SCH ×2 (10:27→21:09)
[2022-02-24] MEDS: Multivit/Ca/Min/Fe/FA 1 TAB TABLET PO SCH (10:27)
[2022-02-24] MEDS: MetroNIDAZOLE 500 MG/100 ML 500 MG/100 ML BAG IVPB SCH ×2 (10:27→15:46)
[2022-02-24] MEDS: amLODIPine 5 MG TABLET PO SCH (10:27)
[2022-02-24] MEDS: polyethylene glycoL 3350 17 GM POWD.PACK PO SCH (10:28)
[2022-02-24] MEDS ORDERED: *HR* OxyCODONE/APAP 5/325 TABLET PO PRN (11:03)
[2022-02-24] MEDS: Ketorolac 30 MG/ML VIAL IVP SCH ×2 (12:22→17:37)
[2022-02-24] MEDS: *HR* Heparin 5,000 UNIT/ML VIAL SQ SCH ×2 (15:46→21:08)
[2022-02-24] MEDS: *HR* OxyCODONE/APAP 10/325 TABLET PO PRN (21:08)
[2022-02-24] MEDS: Insulin DETEMIR 100 UNIT/ML X5UNITS SUBQ SCH (21:10)
[2022-02-25] MEDS: MetroNIDAZOLE 500 MG/100 ML 500 MG/100 ML BAG IVPB SCH ×4 (00:59→23:38)
[2022-02-25] MEDS: Ketorolac 30 MG/ML VIAL IVP SCH ×4 (01:00→17:40)
[2022-02-25 01:20] LABS: Basophils # 0.1 K/mcL (0.0-0.2); Basophils % 0.7 %; Eosinophils # 0.3 K/mcL (0.0-0.6); Eosinophils % 3.7 %; Hemoglobin 8.5 g/dL (11.5-15.4); Immature Granulocytes % 1.3 % (0-4); Lymphocytes # 3.1 K/mcL (0.6-4.6); Mean Corpuscular HGB Conc 30.4 g/dL (31.6-35.5); Mean Corpuscular Hemoglobin 26.6 pg (28.0-33.3); Mean Corpuscular Volume 87.5 fL (83.0-100.0); Mean Platelet Volume 8.9 fL (9.4-12.4); Monocytes # 0.8 K/mcL (0.0-1.3); Monocytes % 8.7 %; Neutrophils # 4.7 K/mcL (1.6-8.9); Platelet Count 521 K/mcL (140-400); Segmented Neutrophils % 51.6 %
[2022-02-25 01:39] LABS: BUN/Creatinine Ratio 30 (6-26); Blood Urea Nitrogen 17 mg/dL (8-23); Calcium 7.7 mg/dL (8.6-10.3); Carbon Dioxide 30 mEq/L (23-29); Chloride 104 mEq/L (98-107); Glucose 232 mg/dL (70-105); Osmolality,Calculated 291 (280-300); Potassium 4.3 mEq/L (3.5-5.1); Sodium 136 mEq/L (136-145)
[2022-02-25 01:41] LABS: % Iron Saturation 11 % (15-50); Iron 22 mcg/dL (50-170); Transferrin 142 mg/dL (203-362)
[2022-02-25 01:59] LABS: Ferritin 276 ng/mL (10-120)
[2022-02-25 02:04] LABS: Folate 9.6 ng/mL (3.0-16.0)
[2022-02-25] MEDS: Ipratropium/Albuterol Neb 3 ML IH SCH ×4 (03:43→21:06)
[2022-02-25 04:05] LABS: Procalcitonin 0.17 ng/mL (0.00-0.15)
[2022-02-25] MEDS: *HR* Heparin 5,000 UNIT/ML VIAL SQ SCH ×3 (06:00→21:17)
[2022-02-25] MEDS: Cefepime HCl 2,000 MG in 0.9 % Sodium Chloride Mini Bag 100 ML IVPB SCH ×2 (06:00→17:40)
[2022-02-25] MEDS: Vancomycin 1,500 MG/265 ML IV.SOLN IVPB SCH ×2 (06:01→18:28)
[2022-02-25] MEDS ORDERED: Nystatin POWDER 30 GM BOTTLE TP PRN (07:24)
[2022-02-25] MEDS ORDERED: Nystatin Cream 15 GM TUBE TP PRN (07:24)
[2022-02-25] MEDS: Multivit/Ca/Min/Fe/FA 1 TAB TABLET PO SCH (09:26)
[2022-02-25] MEDS: polyethylene glycoL 3350 17 GM POWD.PACK PO SCH ×2 (09:26→09:31)
[2022-02-25] MEDS: Loratadine 10 MG TABLET PO SCH (09:27)
[2022-02-25] MEDS: Gabapentin 400 MG CAPSULE PO SCH ×3 (09:27→21:17)
[2022-02-25] MEDS: amLODIPine 5 MG TABLET PO SCH (09:27)
[2022-02-25] MEDS: Lactobacillus 1 EACH CAP.SPRINK PO SCH ×2 (09:28→21:17)
[2022-02-25] MEDS: Insulin LISPRO 300 UNITS/3 ML VIAL SUBQ SCH ×6 (09:32→16:29)
[2022-02-25] MEDS: Furosemide 20 MG TABLET PO SCH (09:34)
[2022-02-25] MEDS: *HR* OxyCODONE/APAP 10/325 TABLET PO PRN ×2 (14:08→21:17)
[2022-02-25] MEDS: Insulin DETEMIR 100 UNIT/ML X5UNITS SUBQ SCH (23:38)
[2022-02-26] MEDS: Ketorolac 30 MG/ML VIAL IVP SCH ×5 (00:55→23:33)
[2022-02-26] MEDS: Ipratropium/Albuterol Neb 3 ML IH SCH ×4 (03:22→22:53)
[2022-02-26] MEDS: Cefepime HCl 2,000 MG in 0.9 % Sodium Chloride Mini Bag 100 ML IVPB SCH ×2 (05:38→17:09)
[2022-02-26] MEDS: *HR* Heparin 5,000 UNIT/ML VIAL SQ SCH ×3 (05:41→20:12)
[2022-02-26] MEDS: Vancomycin 1,500 MG/265 ML IV.SOLN IVPB SCH ×2 (06:22→18:06)
[2022-02-26] MEDS: MetroNIDAZOLE 500 MG/100 ML 500 MG/100 ML BAG IVPB SCH (08:18)
[2022-02-26] MEDS: Multivit/Ca/Min/Fe/FA 1 TAB TABLET PO SCH (08:19)
[2022-02-26] MEDS: Loratadine 10 MG TABLET PO SCH (08:19)
[2022-02-26] MEDS: polyethylene glycoL 3350 17 GM POWD.PACK PO SCH (08:19)
[2022-02-26] MEDS: Lactobacillus 1 EACH CAP.SPRINK PO SCH ×2 (08:19→20:12)
[2022-02-26] MEDS: Gabapentin 400 MG CAPSULE PO SCH ×3 (08:19→20:12)
[2022-02-26] MEDS: amLODIPine 5 MG TABLET PO SCH (08:19)
[2022-02-26] MEDS: Insulin LISPRO 300 UNITS/3 ML VIAL SUBQ SCH ×6 (08:24→17:11)
[2022-02-26] MEDS: Insulin DETEMIR 100 UNIT/ML X5UNITS SUBQ SCH ×2 (08:24→20:13)
[2022-02-26] MEDS: *HR* OxyCODONE/APAP 10/325 TABLET PO PRN (09:55)
[2022-02-27] MEDS: Ipratropium/Albuterol Neb 3 ML IH SCH ×4 (04:28→20:21)
[2022-02-27 04:51] LABS: Hematocrit 28.9 % (35.3-44.9); Hemoglobin 8.7 g/dL (11.5-15.4); Mean Corpuscular HGB Conc 30.1 g/dL (31.6-35.5); Mean Corpuscular Hemoglobin 26.3 pg (28.0-33.3); Mean Corpuscular Volume 87.3 fL (83.0-100.0); Mean Platelet Volume 8.9 fL (9.4-12.4); Platelet Count 540 K/mcL (140-400); Red Blood Count 3.31 M/mcL (3.82-4.97); Red Cell Distribution Width 16.7 % (11.5-14.5); White Blood Count 10.4 K/mcL (4.3-11.1)
[2022-02-27 05:08] LABS: BUN/Creatinine Ratio 21 (6-26); Blood Urea Nitrogen 13 mg/dL (8-23); Calcium 8.3 mg/dL (8.6-10.3); Carbon Dioxide 27 mEq/L (23-29); Chloride 107 mEq/L (98-107); Glucose 132 mg/dL (70-105); Osmolality,Calculated 292 (280-300); Potassium 4.7 mEq/L (3.5-5.1); Sodium 140 mEq/L (136-145)
[2022-02-27] MEDS: Cefepime HCl 2,000 MG in 0.9 % Sodium Chloride Mini Bag 100 ML IVPB SCH ×2 (05:27→17:36)
[2022-02-27] MEDS: *HR* Heparin 5,000 UNIT/ML VIAL SQ SCH ×3 (05:27→20:50)
[2022-02-27] MEDS: Ketorolac 30 MG/ML VIAL IVP SCH ×3 (05:27→17:36)
[2022-02-27] MEDS: Vancomycin 1,500 MG/265 ML IV.SOLN IVPB SCH ×2 (05:35→17:37)
[2022-02-27] MEDS: Furosemide 20 MG TABLET PO SCH (09:02)
[2022-02-27] MEDS: amLODIPine 5 MG TABLET PO SCH (09:02)
[2022-02-27] MEDS: Lactobacillus 1 EACH CAP.SPRINK PO SCH ×2 (09:02→20:49)
[2022-02-27] MEDS: Gabapentin 400 MG CAPSULE PO SCH ×3 (09:03→20:49)
[2022-02-27] MEDS: *HR* OxyCODONE/APAP 10/325 TABLET PO PRN ×2 (09:03→21:09)
[2022-02-27] MEDS: Loratadine 10 MG TABLET PO SCH (09:03)
[2022-02-27] MEDS: Multivit/Ca/Min/Fe/FA 1 TAB TABLET PO SCH (09:03)
[2022-02-27] MEDS: polyethylene glycoL 3350 17 GM POWD.PACK PO SCH (09:04)
[2022-02-27] MEDS: Insulin LISPRO 300 UNITS/3 ML VIAL SUBQ SCH ×6 (09:04→17:36)
[2022-02-27] MEDS: Insulin DETEMIR 100 UNIT/ML X5UNITS SUBQ SCH ×2 (09:09→20:50)
[2022-02-28] MEDS: Ketorolac 30 MG/ML VIAL IVP SCH ×3 (01:25→11:51)
[2022-02-28] MEDS: Ipratropium/Albuterol Neb 3 ML IH SCH ×4 (04:06→20:08)
[2022-02-28] MEDS: *HR* Heparin 5,000 UNIT/ML VIAL SQ SCH ×3 (05:30→22:16)
[2022-02-28] MEDS: Cefepime HCl 2,000 MG in 0.9 % Sodium Chloride Mini Bag 100 ML IVPB SCH ×2 (05:31→17:29)
[2022-02-28] MEDS: Vancomycin 1,500 MG/265 ML IV.SOLN IVPB SCH ×2 (06:01→18:59)
[2022-02-28] MEDS: Multivit/Ca/Min/Fe/FA 1 TAB TABLET PO SCH (08:53)
[2022-02-28] MEDS: amLODIPine 5 MG TABLET PO SCH (08:53)
[2022-02-28] MEDS: Gabapentin 400 MG CAPSULE PO SCH ×3 (08:53→22:15)
[2022-02-28] MEDS: Lactobacillus 1 EACH CAP.SPRINK PO SCH ×2 (08:53→22:15)
[2022-02-28] MEDS: Loratadine 10 MG TABLET PO SCH (08:53)
[2022-02-28] MEDS: *HR* OxyCODONE/APAP 10/325 TABLET PO PRN ×2 (08:54→22:38)
[2022-02-28] MEDS: polyethylene glycoL 3350 17 GM POWD.PACK PO SCH (08:55)
[2022-02-28] MEDS: Insulin LISPRO 300 UNITS/3 ML VIAL SUBQ SCH ×6 (08:59→17:33)
[2022-02-28] MEDS: Insulin DETEMIR 100 UNIT/ML X5UNITS SUBQ SCH ×2 (08:59→22:17)
[2022-02-28 09:18] LABS: Hematocrit 30.2 % (35.3-44.9); Mean Corpuscular HGB Conc 29.8 g/dL (31.6-35.5); Mean Corpuscular Hemoglobin 25.9 pg (28.0-33.3); Mean Platelet Volume 8.7 fL (9.4-12.4); Platelet Count 530 K/mcL (140-400); Red Blood Count 3.47 M/mcL (3.82-4.97); Red Cell Distribution Width 16.8 % (11.5-14.5)
[2022-03-01] MEDS: Ipratropium/Albuterol Neb 3 ML IH SCH ×4 (04:00→22:40)
[2022-03-01] MEDS: Vancomycin 1,500 MG/265 ML IV.SOLN IVPB SCH ×2 (06:24→17:47)
[2022-03-01] MEDS: Cefepime HCl 2,000 MG in 0.9 % Sodium Chloride Mini Bag 100 ML IVPB SCH ×2 (06:26→17:43)
[2022-03-01] MEDS: *HR* Heparin 5,000 UNIT/ML VIAL SQ SCH ×3 (06:28→21:16)
[2022-03-01] MEDS: Multivit/Ca/Min/Fe/FA 1 TAB TABLET PO SCH (08:56)
[2022-03-01] MEDS: Gabapentin 400 MG CAPSULE PO SCH ×3 (08:56→21:16)
[2022-03-01] MEDS: Lactobacillus 1 EACH CAP.SPRINK PO SCH ×2 (08:56→21:16)
[2022-03-01] MEDS: Furosemide 20 MG TABLET PO SCH (08:56)
[2022-03-01] MEDS: *HR* OxyCODONE/APAP 10/325 TABLET PO PRN ×2 (08:56→21:30)
[2022-03-01] MEDS: Loratadine 10 MG TABLET PO SCH (08:56)
[2022-03-01] MEDS: polyethylene glycoL 3350 17 GM POWD.PACK PO SCH (08:56)
[2022-03-01] MEDS: amLODIPine 5 MG TABLET PO SCH (08:56)
[2022-03-01] MEDS: Insulin LISPRO 300 UNITS/3 ML VIAL SUBQ SCH ×6 (08:57→18:17)
[2022-03-01] MEDS: Insulin DETEMIR 100 UNIT/ML X5UNITS SUBQ SCH ×2 (09:00→21:16)
[2022-03-01 12:07] LABS: Basophils # 0.1 K/mcL (0.0-0.2); Basophils % 0.9 %; Eosinophils # 0.5 K/mcL (0.0-0.6); Eosinophils % 5.4 %; Hematocrit 31.6 % (35.3-44.9); Hemoglobin 9.7 g/dL (11.5-15.4); Immature Granulocytes % 1.9 % (0-4); Lymphocytes # 2.3 K/mcL (0.6-4.6); Lymphocytes % 25.4 %; Mean Corpuscular HGB Conc 30.7 g/dL (31.6-35.5); Mean Corpuscular Hemoglobin 26.9 pg (28.0-33.3); Mean Corpuscular Volume 87.5 fL (83.0-100.0); Mean Platelet Volume 8.8 fL (9.4-12.4); Monocytes # 0.6 K/mcL (0.0-1.3); Neutrophils # 5.4 K/mcL (1.6-8.9); Platelet Count 581 K/mcL (140-400); Red Blood Count 3.61 M/mcL (3.82-4.97); Segmented Neutrophils % 59.4 %
[2022-03-01 12:26] LABS: BUN/Creatinine Ratio 34 (6-26); Blood Urea Nitrogen 16 mg/dL (8-23); Carbon Dioxide 24 mEq/L (23-29); Chloride 106 mEq/L (98-107); Glucose 162 mg/dL (70-105); Osmolality,Calculated 289 (280-300); Potassium 4.6 mEq/L (3.5-5.1); Sodium 137 mEq/L (136-145)
[2022-03-02 02:18] LABS: Basophils # 0.1 K/mcL (0.0-0.2); Basophils % 1.1 %; Eosinophils # 0.5 K/mcL (0.0-0.6); Eosinophils % 5.5 %; Hematocrit 29.6 % (35.3-44.9); Hemoglobin 8.9 g/dL (11.5-15.4); Immature Granulocytes % 1.8 % (0-4); Lymphocytes # 3.1 K/mcL (0.6-4.6); Lymphocytes % 34.1 %; Mean Corpuscular HGB Conc 30.1 g/dL (31.6-35.5); Mean Corpuscular Hemoglobin 26.4 pg (28.0-33.3); Mean Corpuscular Volume 87.8 fL (83.0-100.0); Mean Platelet Volume 9.3 fL (9.4-12.4); Monocytes # 0.7 K/mcL (0.0-1.3); Monocytes % 7.3 %; Neutrophils # 4.6 K/mcL (1.6-8.9); Platelet Count 541 K/mcL (140-400); Red Blood Count 3.37 M/mcL (3.82-4.97); Red Cell Distribution Width 16.9 % (11.5-14.5); Segmented Neutrophils % 50.2 %; White Blood Count 9.1 K/mcL (4.3-11.1)
[2022-03-02 02:37] LABS: BUN/Creatinine Ratio 35 (6-26); Blood Urea Nitrogen 17 mg/dL (8-23); Calcium 8.9 mg/dL (8.6-10.3); Carbon Dioxide 24 mEq/L (23-29); Chloride 104 mEq/L (98-107); Glucose 278 mg/dL (70-105); Osmolality,Calculated 292 (280-300); Potassium 4.9 mEq/L (3.5-5.1); Sodium 135 mEq/L (136-145)
[2022-03-02] MEDS: Ipratropium/Albuterol Neb 3 ML IH SCH ×2 (04:16→11:04)
[2022-03-02] MEDS: *HR* Heparin 5,000 UNIT/ML VIAL SQ SCH (05:07)
[2022-03-02] MEDS: Cefepime HCl 2,000 MG in 0.9 % Sodium Chloride Mini Bag 100 ML IVPB SCH (05:07)
[2022-03-02] MEDS: Vancomycin 1,500 MG/265 ML IV.SOLN IVPB SCH (06:01)
[2022-03-02] MEDS: *HR* OxyCODONE/APAP 10/325 TABLET PO PRN (08:53)
[2022-03-02] MEDS: Multivit/Ca/Min/Fe/FA 1 TAB TABLET PO SCH (08:53)
[2022-03-02] MEDS: Gabapentin 400 MG CAPSULE PO SCH (08:53)
[2022-03-02] MEDS: Loratadine 10 MG TABLET PO SCH (08:53)
[2022-03-02] MEDS: Insulin LISPRO 300 UNITS/3 ML VIAL SUBQ SCH ×4 (08:54→11:38)
[2022-03-02] MEDS: polyethylene glycoL 3350 17 GM POWD.PACK PO SCH (08:54)
[2022-03-02] MEDS: Lactobacillus 1 EACH CAP.SPRINK PO SCH (08:54)
[2022-03-02] MEDS: amLODIPine 5 MG TABLET PO SCH (08:54)
[2022-03-02] MEDS: Insulin DETEMIR 100 UNIT/ML X5UNITS SUBQ SCH (08:58)
[2022-03-02 11:05] VITALS: BP 118/66; PULSE 88; TEMP 98; O2SAT 93
== END 2022-03-02 14:47 | disposition home or self-care (01) | DRG 721 ==
LOC: 3ANU → SUATTDRO 02-24 00:30
PROVIDERS: ADMIT Internal Medicine; ATTEND Internal Medicine